=== PATIENT | female | born 1980 | race Caucasian/White ===

== ENCOUNTER → 2021-07-19 16:16 | Outpatient (BNVA) | payer MEDICAID, SELFPAY | PROVIDERS: Family Provider Family Medicine; PCP Family Medicine; Visit Provider Family Medicine | DX: D72.829 Elevated white blood cell count, unspecified (principal); R06.00 Dyspnea, unspecified; Z76.89 Persons encountering health services in other specified circumstances; F17.219 Nicotine dependence, cigarettes, with unspecified nicotine-induced disorders | CPT/HCPCS: 80053; 85025 ==

== ENCOUNTER → 2021-11-27 11:48 | Outpatient (BNVA) | payer MEDICAID, SELFPAY | PROVIDERS: Family Provider Family Medicine; PCP Family Medicine; Visit Provider Nurse Practitioner Family | DX: Z20.822 Contact with and (suspected) exposure to COVID-19 (principal) | CPT/HCPCS: 87635 ==

== ENCOUNTER → 2022-01-13 14:09 | Outpatient (BNVA) | payer MEDICAID, SELFPAY | PROVIDERS: Family Provider Family Medicine; PCP Family Medicine | DX: J11.1 Influenza due to unidentified influenza virus with other respiratory manifestations (principal) | CPT/HCPCS: 87400 ==

== ENCOUNTER → 2022-01-18 10:10 | Outpatient (BNVA) | payer MEDICAID, SELFPAY | PROVIDERS: Family Provider Family Medicine; PCP Family Medicine; Visit Provider Family Medicine | DX: R19.7 Diarrhea, unspecified (principal) | CPT/HCPCS: 87400 ==

== ENCOUNTER 2022-02-13 19:32 | Emergency (ER) | payer MEDICAID, SELFPAY ==
[2022-02-13] VITALS (9 sets, daily range): BP systolic 129–151; BP diastolic 82–97; PULSE 71–82; RESP 16–25; O2SAT 95–100; BMI 35.7
--- NOTE | 2022-02-13 19:49 | W.ED.CHESTPA ---
HPI - Chest Pain General: Chief Complaint: Chest Pain Stated Complaint: Chest Pains and Rt Arm Time Seen by Provider: 02/13/22 19:47 History of Present Illness: Ms. Potter is a 41-year-old lady with history of tobaccoism who presents to the emergency department due to chest and arm pain. Symptom onset was approximately 2 PM and she was working at that time but does not recall specific inciting event. Since that time she has had moderate intensity pressure in her chest which is occasionally sharp and severe in intensity. There is radiation down the left arm. She notes mild nausea, shortness of breath, and generalized malaise. Prior to these symptoms onset she was feeling well. Denies frequent history of similar. No history of hypertension, hyperlipidemia, diabetes. She does have positive family history for coronary artery disease though is unsure of exact age of onset. No history of blood clots or family history of clotting disorders, no prolonged immobilization or recent surgeries. No other specific changes in health, exacerbating, or alleviating factors identified. Onset (ago): hour(s) Prior episodes: No Onset: during exertion Pain location: substernal Pain radiation: right arm Severity: moderate Quality: aching, heaviness and sharp Review of Systems General: Reports: 10 or more systems reviewed and unremarkable except in HPI and below PFSH ED PFSH: Surgical History History of cholecystectomy History of hysterectomy History of tonsillectomy Social History Smoking and tobacco status: never smoked Second hand smoke exposure: Yes Alcohol intake: current Alcohol intake frequency: few times a month Desire information about alcohol rehabilitation?: No Physical Exam Const: COMMON NORMALS: alert GENERAL APPEARANCE: cooperative and well developed HENMT: COMMON NORMALS: normocephalic and atraumatic HEAD & SCALP: normocephalic and atraumatic Eye: COMMON NORMALS: conjunctivae normal CONJUNCTIVA: Yes conjunctivae normal SCLERA: sclerae normal Neck/C-Spine: COMMON NORMALS: supple GENERAL: Yes trachea midline Resp: COMMON NORMALS: clear to auscultation bilaterally EFFORT & INSPECTION: Yes able to speak in complete sentences AUSCULTATION: clear to auscultation bilaterally Cardio: COMMON NORMALS: regular rate and regular rhythm RATE: regular rate RHYTHM: regular rhythm GI: COMMON NORMALS: Soft to palpation PALPATION: Yes Soft to palpation and No Tenderness to palpation present (GI) PERCUSSION: normal to percussion Extremity: GENERAL: Yes normal exam except as noted and No edema Neuro: COMMON NORMALS: moves all extremities SENSORIUM/ORIENTATION: Yes alert and No Orientation impaired Psych: COMMON NORMALS: mental status grossly normal and Normal thought process present THOUGHT PROCESS: Normal thought process present Course ED course: - Patient was seen and evaluated by me at bedside - Patient placed on cardiac monitors, IV access obtained - Initial evaluation notable for exam as above. - Labs and xrays personally interpreted by me. EKG notable for sinus rhythm with out acute abnormality, no STEMI. -Aspirin, analgesia, antiemetic ordered. - Labs notable for no leukocytosis, normal hemoglobin. Metabolic panel with mild hypokalemia, oral replenishment ordered. Troponin negative with greater than 6 hours of symptoms. - Imaging notable for no lobar consolidation or pneumothorax on chest x-ray. - Upon serial reexamination after treatment the patient was somewhat improved - Based on patient history, evaluation, and testing as interpreted the most likely cause of the patient's condition is chest pain of uncertain etiology. Given history of underlying lung disease and exacerbation cannot be ruled out is triggering of symptoms. Patient is overall low risk by heart score and does not require further inpatient cardiac evaluation. She will be treated with COPD exacerbation and for now for outpatient follow-up. - The results of ED evaluation were discussed with the patient including prescriptions and/or symptomatic cares (if applicable) including appropriate and responsible use, followup plan, and return precautions. The patient verbalized understanding and felt safe for discharge. - Patient discharged in satisfactory condition. Note: Click bubbles or prepopulated sewell in note writing are used for assistance with data collection and billing and are inherently more limited than narrative and other text portions of this note. Please use narrative for additional clinical history and defer to narrative/free test for any case of contradictory information. If information appears in only free text or click bubble it should be considered present or absent as reported. Please contact note sba underwriter for clarifications of clinical information or contradictory information. MDM is a brief summary, contradictory or erroneous seeming information should be clarified and full note should be reviewed. Vital Signs: Vital signs: Vital Signs Pulse Rate 72 02/13/22 21:50 Respiratory Rate 20 H 02/13/22 21:50 Blood Pressure 134/90 02/13/22 21:50 Pulse Oximetry 98 02/13/22 21:50 MDM - Chest Pain Medical Decision Making 41-year-old lady presenting with chest pain. Low risk by heart score. Does have underlying COPD and will be treated for COPD exacerbation. Satisfactory for outpatient follow-up. Medical Records I reviewed the patient's medical records. Lab Data I reviewed the patient's lab results. : 02/13/22 20:10 02/13/22 20:10 Radiology Impressions Chest X-Ray 02/13/22 19:58 IMPRESSION: No acute findings. Laboratory Results WBC 8.6 10^3/uL (4.0-10.0) 02/13/22 20:10 RBC 4.73 10^6/uL (4.1-5.3) 02/13/22 20:10 Hgb 14.1 g/dL (11.5-15.3) 02/13/22 20:10 Hct 41.9 % (37.0-47.0) 02/13/22 20:10 MCV 88.6 fl (81-99) 02/13/22 20:10 MCH 29.8 pg (28.0-34.0) 02/13/22 20:10 MCHC 33.7 g/dL (30.0-36.0) 02/13/22 20:10 RDW 12.6 % (12.1-15.1) 02/13/22 20:10 Plt Count 233 10^3/cmm (130-400) 02/13/22 20:10 MPV 11.3 fL (7.4-10.4) H 02/13/22 20:10 Neut % (Auto) 69.5 % 02/13/22 20:10 Lymph % (Auto) 23.4 % 02/13/22 20:10 [place] % (Auto) 4.1 % 02/13/22 20:10 Eos % (Auto) 2.3 % 02/13/22 20:10 Baso % (Auto) 0.5 % 02/13/22 20:10 Neut # (Auto) 5.99 10^3/uL (1.8-7.7) 02/13/22 20:10 Lymph # (Auto) 2.0 10^3/uL (0.8-4.8) 02/13/22 20:10 [place] # (Auto) 0.4 10^3/uL (0.2-0.9) 02/13/22 20:10 Eos # (Auto) 0.2 10^3/uL (0.0-0.8) 02/13/22 20:10 Baso # (Auto) 0.0 10^3/uL (0.0-0.1) 02/13/22 20:10 Nucleated RBC % (auto) 0 % 02/13/22 20:10 Nucleated RBCs # 0.0 /100WBC 02/13/22 20:10 Sodium 139 mmol/L (136-145) 02/13/22 20:10 Potassium 3.3 mmol/L (3.5-5.1) L 02/13/22 20:10 Chloride 105 mmol/L (98-107) 02/13/22 20:10 Carbon Dioxide 24 mmol/L (22-29) 02/13/22 20:10 Anion Gap 13.3 (5-19) 02/13/22 20:10 BUN 14 mg/dL (6-20) 02/13/22 20:10 Creatinine 0.7 mg/dL (0.5-0.9) 02/13/22 20:10 GFR Calculation 91.8 mL/min (90-130) 02/13/22 20:10 Glucose 109 mg/dL (65-115) 02/13/22 20:10 Calculated Osmolality 289 mOsm/kg (285-295) 02/13/22 20:10 Calcium 9.5 mg/dL (8.5-10.5) 02/13/22 20:10 Total Bilirubin 0.4 mg/dL (0.15-1.2) 02/13/22 20:10 AST 21 U/L (0-32) 02/13/22 20:10 ALT 21 U/L (0-33) 02/13/22 20:10 Alkaline Phosphatase 68 IU/L (35-105) 02/13/22 20:10 Troponin T Baseline 6 ng/L (0-10) 02/13/22 20:10 NT-Pro-B Natriuret Pep 52 pg/mL (0-125) 02/13/22 20:10 Total Protein 7.0 g/dL (6.6-8.7) 02/13/22 20:10 Albumin 4.7 g/dL (3.5-5.2) 02/13/22 20:10 Globulin 2.3 g/dL (1.3-4.6) 02/13/22 20:10 Lipase 47 U/L (13-60) 02/13/22 20:10 Discharge Plan Discharge Patient Disposition: Home Clinical Impression: Chest pain Condition: Stable Prescriptions: New albuterol sulfate 90 mcg/actuation HFA aerosol inhaler 2 inh inhalation Q4H PRN (Reason: shortness of breath or wheezing) Qty: 8.5 0RF Rx Instructions: 2 puffs every 4 hr for 1 day then every 6 hr for 1 day then every 8 hr doxycycline hyclate 100 mg tablet 100 mg PO BID 10 Days Qty: 20 0RF No Action Tylenol PM Extra Strength 25-500 mg Tablet 2 tab PO BEDTIME PRN (Reason: Sleep) 0RF Rx Instructions: administer while awake melatonin 10 mg Tablet 20 mg PO BEDTIME 0RF Discharge Orders: Discharge ED (Routine); Ordered 02/13/22 Ordered By: Ruel Alvarez Discharge Diet: Usual diet Discharge Activity: Increase activity as tolerated Patient Instructions: Chest Pain (ED), COPD (Chronic Obstructive Pulmonary Disease) (ED), Opioid Safety Activity Restrictions/Additional Instructions: Thank you for visiting the emergency department. You were seen and evaluated for chest pain. The exact cause of your symptoms is unclear. You are overall low risk for cardiac cause however I will message case management for follow-up with cardiology for additional cardiac testing if they feel appropriate. Additionally I will treat you for a flareup of underlying lung disease likely secondary to smoking. Please follow-up with your primary care provider. Return to the emergency department for worsening symptoms or anything else that you are concerned about and feel needs emergency department evaluation. Coding Level of Care Code ED Electrician Supervisor for Leonardo Fwmaru Exam Comprehensive
--- NOTE | 2022-02-13 19:58 | XRR_ITS ---
PROCEDURE INFORMATION: Exam: XR Chest Exam date and time: 02/13/2022 8:31 PM Age: 41 years old Clinical indication: Chest wall pain; Additional info: Chest pain TECHNIQUE: Imaging protocol: XR of the chest. Views: 1 view. COMPARISON: CT chest w con* [id number] 06/24/2018 7:32 PM FINDINGS: Lungs: Unremarkable. No consolidation. Pleural spaces: Unremarkable. No pleural effusion. No pneumothorax. Heart/Mediastinum: Unremarkable. No cardiomegaly. Bones/joints: Unremarkable. XR/XR chest 1V portable [id number] IMPRESSION: No acute findings.
--- NOTE | 2022-02-13 19:58 | ECG_ITS ---
[facility] Test Date: 2022-02-13 Pat Name: Cyndi Potter Department: Room: Gender: Female Cadastral Surveyor: : 1980 Requested By: Ruel Alvarez Order Number: [id number] Natarajan MD: Mickey Famrer M.D. Measurements Intervals [place] Rate: 74 P: 57 [place]: 168 QRS: 48 QRSD: 79 T: 65 QT: 366 QTc: 406 Interpretive Statements SINUS RHYTHM No previous ECG available for comparison Electronically Signed On 02-13-2022 21:56:24 CDT by Mickey Farmer M.D. [id number]
[2022-02-13] MEDS: ondansetron 2 mg/ML SDV 2 mL 4 MG IVP (20:17)
[2022-02-13] MEDS: morphine 4 mg/mL SDV 1 mL IVP (20:17)
[2022-02-13] MEDS: aspirin 81 mg Chew Tablet 324 MG PO (20:18)
[2022-02-13 20:19] LABS: Basophils % 0.5 %; Eosinophils # 0.2 10^3/uL (0.0-0.8); Eosinophils % 2.3 %; Hematocrit 41.9 % (37.0-47.0); Hemoglobin 14.1 g/dL (11.5-15.3); Lymphocytes % 23.4 %; Mean Corpuscular HGB Conc 33.7 g/dL (30.0-36.0); Mean Corpuscular Hemoglobin 29.8 pg (28.0-34.0); Mean Corpuscular Volume 88.6 fl (81-99); Mean Platelet Volume 11.3 fL (7.4-10.4); Monocytes # 0.4 10^3/uL (0.2-0.9); Monocytes % 4.1 %; Neutrophils # 5.99 10^3/uL (1.8-7.7); Neutrophils % 69.5 %; Nucleated Red Blood Cells % 0 %; Platelet Count 233 10^3/cmm (130-400); Red Blood Count 4.73 10^6/uL (4.1-5.3); Red Cell Distribution Width 12.6 % (12.1-15.1); White Blood Count 8.6 10^3/uL (4.0-10.0)
[2022-02-13 20:42] LABS: Troponin(5th) Baseline 6 ng/L (0-10)
[2022-02-13 20:52] LABS: Alanine Aminotransferase 21 U/L (0-33); Albumin Level 4.7 g/dL (3.5-5.2); Alkaline Phosphatase 68 IU/L (35-105); Anion Gap 13.3 (5-19); Aspartate Amino Transferase 21 U/L (0-32); Blood Urea Nitrogen 14 mg/dL (6-20); Calcium 9.5 mg/dL (8.5-10.5); Carbon Dioxide 24 mmol/L (22-29); Chloride 105 mmol/L (98-107); Creatinine Clr Calc Pharmacy 120.9979; Globulin 2.3 g/dL (1.3-4.6); Glomerular Filtration Rate 91.8 mL/min (90-130); Glucose 109 mg/dL (65-115); Lipase 47 U/L (13-60); NT Pro B Type Natriuretic Pept 52 pg/mL (0-125); Osmolality Calculated 289 mOsm/kg (285-295); Potassium 3.3 mmol/L (3.5-5.1); Sodium 139 mmol/L (136-145); Total Bilirubin 0.4 mg/dL (0.15-1.2)
[2022-02-13] MEDS: potassium chloride oral liq 20 mEq/15 mL UDC 40 MEQ PO (21:06)
[2022-02-13] MEDS: predniSONE 20 mg Tablet 40 MG PO (21:44)
[2022-02-13] MEDS: doxycycline 100 mg Tablet PO (21:44)
--- NOTE | 2022-02-13 21:58 | ECG_ITS ---
[facility] Test Date: 2022-02-13 Pat Name: Cyndi Potter Department: Room: Gender: Female Finishing Pan Operator: : 1980 Requested By: Ruel Alvarez Order Number: [id number] Natarajan MD: Mickey Farmer M.D. Measurements Intervals [place] Rate: 66 P: 54 [place]: 170 QRS: 47 QRSD: 83 T: 64 QT: 385 QTc: 405 Interpretive Statements SINUS RHYTHM WITH SINUS ARRHYTHMIA Compared to ECG 02/13/2022 19:45:13 No significant changes Electronically Signed On 02-13-2022 22:00:40 CDT by Mickey Farmer M.D. [id number]
--- NOTE | 2022-02-14 13:34 | DCPLANNER ---
Addendum entered by Yanet Colón 05/03/22 11:01: Patient had a follow up appointment scheduled with [facility] - patient did attend appointment. Addendum entered by Yanet Colón 02/23/22 10:21: Patient has a follow up appointment scheduled for Saturday April 16, 2022 at 1:[address] Jaramillo. Clinic will call patient with appointment information. Original Note: credit administration manager had message to schedule a follow up appointment for patient with [facility]. credit administration manager sent patients information to the front office staff at [facility]. Patients information will be printed and reviewed. Clinic will call patient with appointment information.
== END 2022-02-13 21:51 | disposition home or self-care (01) ==
PROVIDERS: Emergency Provider Emergency Medicine
DX: R07.9 Chest pain, unspecified (principal)
CPT/HCPCS: 71045; 80053; 83690; 83880; 84484; 85025; 93005; 96374; 96375; 99285; J2270; J2405; J7512

== ENCOUNTER → 2022-03-19 09:58 | Outpatient (BNVA) | payer MEDICAID, SELFPAY | PROVIDERS: PCP Family Medicine; Visit Provider Internal Medicine Cardiovascular Disease | DX: R07.9 Chest pain, unspecified (principal); F17.210 Nicotine dependence, cigarettes, uncomplicated; I49.9 Cardiac arrhythmia, unspecified; R06.02 Shortness of breath | CPT/HCPCS: 99203 ==

== ENCOUNTER 2022-06-18 10:13 | Outpatient (CLI) | payer MEDICAID, SELFPAY ==
[2022-06-18 10:47] LABS: Basophils % 0.9 %; Eosinophils # 0.1 10^3/uL (0.0-0.8); Eosinophils % 1.1 %; Hematocrit 48.7 % (37.0-47.0); Hemoglobin 14.4 g/dL (11.5-15.3); Lymphocytes # 0.7 10^3/uL (0.8-4.8); Lymphocytes % 16.1 %; Mean Corpuscular HGB Conc 29.6 g/dL (30.0-36.0); Mean Corpuscular Hemoglobin 31.3 pg (28.0-34.0); Mean Corpuscular Volume 105.9 fl (81-99); Mean Platelet Volume 11.7 fL (7.4-10.4); Monocytes # 0.5 10^3/uL (0.2-0.9); Monocytes % 10.6 %; Neutrophils # 3.21 10^3/uL (1.8-7.7); Neutrophils % 70.9 %; Nucleated Red Blood Cells % 0 %; Platelet Count 158 10^3/cmm (130-400); White Blood Count 4.5 10^3/uL (4.0-10.0)
[2022-06-18 11:37] LABS: Alanine Aminotransferase 23 U/L (0-33); Albumin Level 4.4 g/dL (3.5-5.2); Alkaline Phosphatase 61 U/L (35-105); Anion Gap 13.6 (5-19); Aspartate Amino Transferase 19 U/L (0-32); Blood Urea Nitrogen 10 mg/dL (6-20); Calcium 9.1 mg/dL (8.5-10.5); Carbon Dioxide 25 mmol/L (22-29); Chloride 102 mmol/L (98-107); Globulin 2.4 g/dL (1.3-4.6); Glomerular Filtration Rate 78.7 mL/min (90-130); Glucose 83 mg/dL (65-115); Magnesium 1.9 mg/dL (1.7-2.3); Osmolality Calculated 282 mOsm/kg (285-295); Potassium 3.6 mmol/L (3.5-5.1); Sodium 137 mmol/L (136-145); Thyroid Stimulating Hormone 1.28 uIU/mL (0.27-4.20); Total Bilirubin 0.4 mg/dL (0.15-1.2); Total Protein 6.8 g/dL (6.6-8.7)
[2022-06-18 12:05] LABS: HIV 1 & 2 Antibody Non-Reactive (Non-Reactiv); HIV 1 & 2 Antigen Non-Reactive (Non-Reactiv)
[2022-06-18 12:45] LABS: Hepatitis C Virus Antibody Non-Reactive (Nonreactive)
[2022-06-18 12:49] LABS: Hepatitis B Surface AB < 3.5 (11.5-1000)
== END 2022-06-18 10:14 | disposition home or self-care (01) ==
LOC: LAB 10:15
PROVIDERS: PCP Family Medicine; Visit Provider Family Medicine
DX: Z12.31 Encounter for screening mammogram for malignant neoplasm of breast (principal); E87.6 Hypokalemia; N64.4 Mastodynia; Z11.4 Encounter for screening for human immunodeficiency virus [HIV]; Z11.59 Encounter for screening for other viral diseases; Z91.89 Other specified personal risk factors, not elsewhere classified
CPT/HCPCS: 36415; 80053; 83735; 84443; 85025; 86706; 86803; 87806

== ENCOUNTER → 2023-04-15 10:34 | Outpatient (BNVA) | payer MEDICAID, SELFPAY | PROVIDERS: PCP Family Medicine; Visit Provider Family Medicine | DX: D75.89 Other specified diseases of blood and blood-forming organs (principal); F17.219 Nicotine dependence, cigarettes, with unspecified nicotine-induced disorders; R53.83 Other fatigue; R63.5 Abnormal weight gain | CPT/HCPCS: 85025 ==

== ENCOUNTER → 2023-07-18 15:46 | Outpatient (BNVA) | payer MEDICAID, SELFPAY | PROVIDERS: PCP Family Medicine; Visit Provider Emergency Medicine | DX: R39.9 Unspecified symptoms and signs involving the genitourinary system (principal) | CPT/HCPCS: 81000 ==

== ENCOUNTER 2023-09-19 06:46 | Emergency (ER) | payer MEDICAID, SELFPAY ==
[2023-09-19 07:02] VITALS: BMI 36.2
[2023-09-19 07:04] VITALS: BP 137/90; PULSE 84; RESP 15; TEMP 37.1; O2SAT 97
[2023-09-19] MEDS: ondansetron 2 mg/ML SDV 2 mL 4 MG IVP (07:13)
--- NOTE | 2023-09-19 07:13 | W.ED.ABDPA2 ---
HPI - Abdominal Pain General: Chief Complaint: Abdominal Pain Stated Complaint: lower right abd pain,N/V Time Seen by Provider: 09/19/23 06:53 Source: patient Mode of arrival: ambulatory History of Present Illness: 43-year-old female presents emergency room with complaint of abdominal discomfort. She localizes the pain to the right lower quadrant that woke her up from sleep this morning is progressively worsened she is very nauseous feels like she needs to vomit but has not. She also feels like she is has a bowel movement has not been able to she noticed that when she went down the stairs it was much more intense she came down it is also worsens with any movement. She denies any fever sweats chills no dysuria urgency or frequency no hematuria no hematemesis or coffee-ground emesis she previously has had cholecystectomy and hysterectomy. MD elicited complaint: abdominal pain Onset (ago): hour(s) Pain Consistency: constant Location: RLQ Severity: severe Quality: sharp Exacerbating factors: movement Relieving factors: nothing Associated Symptoms: Reports nausea and vomiting; Denies anorexia, belching, bloating, change in bowel habits, change in stool character, chills, coffee ground emesis, constipation, GI cramping, diarrhea, dyspepsia, dysuria, excessive flatus, fever(s), heartburn, hematochezia, hematuria, hematemesis, fecal incontinence, loose stools, melena, poor appetite and syncope Review of Systems Const: Denies: fever(s) or chills Card: Denies: syncope Resp: Denies: dyspnea GI: Reports: nausea and vomiting; Denies: hematemesis, coffee ground emesis, heartburn, diarrhea, constipation, bloating, GI cramping, belching, excessive flatus, fecal incontinence, change in bowel habits, change in stool character, hematochezia or melena : Denies: dysuria or hematuria Musc: Denies: neck pain or back pain Skin/Breast: Denies: rash PFSH ED PFSH: Medical History Viral illness Surgical History History of hysterectomy History of tonsillectomy History of cholecystectomy Social History (Reviewed 12/21/23 @ 07:16 by SHAHAB Wen Smoking and tobacco/nicotine status: current every day tobacco/nicotine user cigarettes Second hand smoke exposure: Yes Alcohol intake: current Alcohol intake frequency: few times a month Substance/Drug Use: never Female Reproductive History: Spontaneous abortions: No Physical Exam Const: GENERAL APPEARANCE: cooperative and comfortable ORIENTATION/CONSCIOUSNESS: Yes awake, Yes oriented to person, Yes oriented to place and Yes oriented to time HENMT: COMMON NORMALS: normocephalic, atraumatic and hearing grossly normal bilaterally HEAD & SCALP: normocephalic and atraumatic Resp: COMMON NORMALS: normal respiratory effort, No retractions, No use of accessory muscles and clear to auscultation bilaterally AUSCULTATION: clear to auscultation bilaterally Cardio: COMMON NORMALS: regular rate, regular rhythm and No murmurs present (Cardio) RATE: regular rate RHYTHM: regular rhythm GI: COMMON NORMALS: No hepatosplenomegaly present AUSCULTATION: Yes Hypoactive bowel sounds present PALPATION: Yes Tenderness to palpation present (GI), Yes Guarding due to palpation present (GI) in the RLQ and Yes No hepatosplenomegaly present Extremity: COMMON NORMALS: normal to inspection, capillary refill normal, no clubbing, cyanosis or edema, no calf tenderness and no pedal edema Neuro: SENSORIUM/ORIENTATION: Yes oriented to person, Yes oriented to place and Yes oriented to time Skin: COMMON NORMALS: no rashes or lesions noted GENERAL SKIN EXAM: no rashes or lesions noted Course Vital Signs: Vital signs: Vital Signs Temperature 98.8 F 09/19/23 07:04 Pulse Rate 74 09/19/23 09:32 Respiratory Rate 18 09/19/23 09:01 Blood Pressure 131/87 09/19/23 09:32 Pulse Oximetry 97 09/19/23 09:32 Oxygen Delivery Me thod Room Air 09/19/23 09:01 MDM - Abdominal Pain Medical Decision Making No acute appendicitis on CT no leukocytosis UA negative. Suspect discomfort is from the ovarian cyst. Discharge home with diclofenac follow-up with REFORESTATION WORKER or primary care to reevaluate in the next few weeks. Medical Records I reviewed the patient's medical records. Lab Data I reviewed the patient's lab results. 09/19/23 07:15 09/19/23 07:15 Labs/Radiology: Laboratory Results WBC 6.16 10^3/uL (3.29-11.43) 09/19/23 07:15 RBC 5.13 10^6/uL (3.85-5.65) 09/19/23 07:15 Hgb 15.20 g/dL (11.27-16.99) 09/19/23 07:15 Hct 44.6 % (36-47) 09/19/23 07:15 MCV 86.9 fl (85-98) 09/19/23 07:15 MCH 29.6 pg (27-33) 09/19/23 07:15 MCHC 34.1 g/dL (30-55) 09/19/23 07:15 RDW 12.6 % (12.1-15.1) 09/19/23 07:15 Plt Count 228 10^3/cmm (157-399) 09/19/23 07:15 MPV 10.5 fL (7.4-10.4) H 09/19/23 07:15 Neut % (Auto) 66.5 % 09/19/23 07:15 Lymph % (Auto) 25.2 % 09/19/23 07:15 [place] % (Auto) 4.5 % 09/19/23 07:15 Eos % (Auto) 2.9 % 09/19/23 07:15 Baso % (Auto) 0.6 % 09/19/23 07:15 Neut # (Auto) 4.09 10^3/uL (1.8-7.7) 09/19/23 07:15 Lymph # (Auto) 1.6 10^3/uL (0.8-4.8) 09/19/23 07:15 [place] # (Auto) 0.3 10^3/uL (0.2-0.9) 09/19/23 07:15 Eos # (Auto) 0.2 10^3/uL (0.0-0.8) 09/19/23 07:15 Baso # (Auto) 0.0 10^3/uL (0.0-0.1) 09/19/23 07:15 Nucleated RBC % (auto) 0 % 09/19/23 07:15 Nucleated RBCs # 0.0 /100WBC 09/19/23 07:15 Sodium 136 mmol/L (136-145) 09/19/23 07:15 Potassium 4.0 mmol/L (3.5-5.1) 09/19/23 07:15 Chloride 102 mmol/L (98-107) 09/19/23 07:15 Carbon Dioxide 23 mmol/L (22-29) 09/19/23 07:15 Anion Gap 15.0 (5-19) 09/19/23 07:15 BUN 14 mg/dL (6-20) 09/19/23 07:15 Creatinine 0.7 mg/dL (0.5-0.9) 09/19/23 07:15 GFR Calculation 90.9 mL/min (90-130) 09/19/23 07:15 Glucose 161 mg/dL (65-115) H 09/19/23 07:15 Calculated Osmolality 286 mOsm/kg (285-295) 09/19/23 07:15 Calcium 9.4 mg/dL (8.5-10.5) 09/19/23 07:15 Total Bilirubin 0.5 mg/dL (0.15-1.2) 09/19/23 07:15 AST 22 U/L (0-32) 09/19/23 07:15 ALT 32 U/L (0-33) 09/19/23 07:15 Alkaline Phosphatase 68 U/L (35-105) 09/19/23 07:15 Total Protein 6.9 g/dL (6.6-8.7) 09/19/23 07:15 Albumin 4.6 g/dL (3.5-5.2) 09/19/23 07:15 Globulin 2.3 g/dL (1.3-4.6) 09/19/23 07:15 Urine Color Yellow (Yellow) 09/19/23 08:32 Urine Appearance Clear (CLEAR) 09/19/23 08:32 Urine pH 6 (5-7) 09/19/23 08:32 Ur Specific [place] 1.010 (1.005-1.030) 09/19/23 08:32 Urine Protein Neg (Negative) 09/19/23 08:32 Urine Glucose (UA) Norm (Normal) 09/19/23 08:32 Urine Ketones Negative (Negative) 09/19/23 08:32 Urine Blood Neg (Negative) 09/19/23 08:32 Urine Nitrate Negative (Negative) 09/19/23 08:32 Urine Bilirubin Neg (Negative) 09/19/23 08:32 Urine Urobilinogen Norm mg/dL (Negative) 09/19/23 08:32 Ur Leukocyte Esterase Negative (Negative) 09/19/23 08:32 All radiology interpretation(s) finalized by discharge Discharge Plan Discharge Patient Disposition: Home Clinical Impression: Cyst of right ovary Condition: Stable Prescriptions: New diclofenac sodium 75 mg tablet,delayed release (DR/EC) 75 mg PO Q12H PRN (Reason: pain) Qty: 20 0RF Discontinued ibuprofen 200 mg Tablet 800 mg PO Q6H PRN (Reason: Pain) Discharge Orders: Discharge ED (Routine); Ordered 09/19/23 Ordered By: Saul Hoskins Referrals: Joe Oswald DO [Primary Care Provider] - Discharge Diet: Usual diet Discharge Activity: Increase activity as tolerated Patient Instructions: Ovarian Cyst (ED), Opioid Safety, Pain Management Activity Restrictions/Additional Instructions: Thank you for choosing [facility] for your healthcare needs today. Please realize this is an emergency room and that we are providing you with a medical screening exam and this may not be complete and all inclusive of all the testing and or work up that you may need to determine your ailment or severity of your illness. It is very important that you follow up as instructed or that you return to the Emergency Department should you have concerns or if your condition changes or worsens in any way. Follow-up with your doctor for reevaluation of the ovarian cyst in the next 1 to 2 weeks. Use the diclofenac instead of ibuprofen for discomfort. Coding Level of Care Code ED Roller Cleaner for Leonardo Alfaro
[2023-09-19] MEDS: sodium chloride 0.9% 1,000 ML 999 ML IV (07:14)
--- NOTE | 2023-09-19 07:16 | CT_ITS ---
WS: [id number] CT ABDOMEN PELVIS TECHNIQUE: Contrast-enhanced CT of the abdomen and pelvis with coronal and sagittal reformatted image s. CLINICAL INFORMATION: Abdominal pain COMPARISON: CT 2018 DLP: 928.[address] scans at [facility] use at least one of these dose optimization techniques: automated e xposure control; mA and/or kV adjustment per patient size (includes targeted exams where dose is matc hed to clinical indication); or iterative reconstruction. FINDINGS: Diffuse fatty infiltration of the liver. Prior cholecystectomy. Enlargement the RIGHT hepat ic lobe. Normal spleen. Lung bases are well aerated. Normal pancreatic parenchymal enhancement. Maria L l portal vein and splenic vein. Tiny esophageal hiatal hernia. Adrenal glands are normal. Normal paris l parenchymal enhancement. Small bilateral renal cysts. No hydronephrosis. Normal portal vein and spl enic vein. Normal caliber abdominal aorta. Normal sigmoid colon. Normal appendix. Lobulated RIGHT ovarian cyst measuring 3.9 x 3.2 cm. IMPRESSION: 1. Normal appendix in the RIGHT lower quadrant. 2. Lobulated RIGHT ovarian cyst measuring 3.9 x 3.2 cm. 3. Prior cholecystectomy. 4. Tiny esophageal hiatal hernia. 5. Hepatomegaly with mild diffuse fatty infiltration of the liver.
[2023-09-19 07:22] LABS: Basophils % 0.6 %; Eosinophils # 0.2 10^3/uL (0.0-0.8); Eosinophils % 2.9 %; Hematocrit 44.6 % (36-47); Lymphocytes # 1.6 10^3/uL (0.8-4.8); Lymphocytes % 25.2 %; Mean Corpuscular HGB Conc 34.1 g/dL (30-55); Mean Corpuscular Hemoglobin 29.6 pg (27-33); Mean Corpuscular Volume 86.9 fl (85-98); Mean Platelet Volume 10.5 fL (7.4-10.4); Monocytes # 0.3 10^3/uL (0.2-0.9); Monocytes % 4.5 %; Neutrophils # 4.09 10^3/uL (1.8-7.7); Neutrophils % 66.5 %; Nucleated Red Blood Cells % 0 %; Platelet Count 228 10^3/cmm (157-399); Red Blood Count 5.13 10^6/uL (3.85-5.65); Red Cell Distribution Width 12.6 % (12.1-15.1); White Blood Count 6.16 10^3/uL (3.29-11.43)
[2023-09-19 07:34] VITALS: BP 124/82; O2SAT 98
[2023-09-19 07:39] LABS: Alanine Aminotransferase 32 U/L (0-33); Albumin Level 4.6 g/dL (3.5-5.2); Alkaline Phosphatase 68 U/L (35-105); Aspartate Amino Transferase 22 U/L (0-32); Blood Urea Nitrogen 14 mg/dL (6-20); Calcium 9.4 mg/dL (8.5-10.5); Carbon Dioxide 23 mmol/L (22-29); Chloride 102 mmol/L (98-107); Globulin 2.3 g/dL (1.3-4.6); Glomerular Filtration Rate 90.9 mL/min (90-130); Glucose 161 mg/dL (65-115); Osmolality Calculated 286 mOsm/kg (285-295); Sodium 136 mmol/L (136-145); Total Bilirubin 0.5 mg/dL (0.15-1.2); Total Protein 6.9 g/dL (6.6-8.7)
[2023-09-19] MEDS: iohexol 350 mg/mL 500 mL Btl (per mL) IV (07:40)
[2023-09-19 08:31] VITALS: BP 134/88; PULSE 67; RESP 16; O2SAT 98
[2023-09-19 08:38] LABS: Add Urine Microscopic? NO; Charge for UA Resulting for Rev
[2023-09-19 08:44] LABS: Bilirubin Urine Neg (Negative); Blood Urine Neg (Negative); Glucose Urine UA Norm (Normal); Ketones Urine Negative (Negative); Leukocyte Esterase Urine Negative (Negative); Nitrate Urine Negative (Negative); Protein Urine Neg (Negative); Urine Appearance Clear (CLEAR); Urine Color Yellow (Yellow); Urobilinogen Urine Norm (Negative); pH Urine 6 (5-7)
[2023-09-19 09:01] VITALS: BP 116/89; PULSE 75; RESP 18; O2SAT 98
[2023-09-19] MEDS: ketorolac 30 mg/mL INJ IVP (09:02)
[2023-09-19 09:32] VITALS: BP 131/87; PULSE 74; O2SAT 97
== END 2023-09-19 09:36 | disposition home or self-care (01) ==
PROVIDERS: Emergency Provider Family Medicine; PCP Family Medicine
DX: N83.201 Unspecified ovarian cyst, right side (principal); F17.210 Nicotine dependence, cigarettes, uncomplicated
CPT/HCPCS: 74177; 80053; 81003; 85025; 96361; 96374; 96375; 99285; J1885; J2405; J7030; Q9967

== ENCOUNTER 2024-04-09 13:14 | Emergency (ER) | payer MEDICAID, SELFPAY ==
--- NOTE | 2024-04-09 13:14 | ECG_ITS ---
[facility] Test Date: 2024-04-09 Pat Name: Cyndi Potter Department: Room: Gender: Female Child Protective Services Social Worker: : 1980 Requested By: Daniel Baum Order Number: [id number] Natarajan MD: Mimi Schreiber M.D. Measurements Intervals [place] Rate: 86 P: 61 [place]: 163 QRS: 36 QRSD: 73 T: 66 QT: 341 QTc: 410 Interpretive Statements SINUS RHYTHM POSSIBLE LEFT ATRIAL ENLARGEMENT [-0.1mV P-WAVE IN V1/V2] Compared to ECG 02/13/2022 21:41:37 Sinus arrhythmia no longer present Electronically Signed On 04-09-2024 23:24:01 CDT by Mimi Schreiber M.D. [id number]
[2024-04-09 13:21] VITALS: BP 122/75; PULSE 88; RESP 18; TEMP 36.6; O2SAT 96
== END 2024-04-09 14:17 | disposition left against medical advice (07) ==
PROVIDERS: Emergency Provider Family Medicine; PCP Family Medicine
DX: R07.9 Chest pain, unspecified (principal); M25.511 Pain in right shoulder; M25.522 Pain in left elbow; R06.02 Shortness of breath; R42 Dizziness and giddiness; Z53.21 Procedure and treatment not carried out due to patient leaving prior to being seen by health care provider
CPT/HCPCS: 93005

== ENCOUNTER 2025-04-30 09:06 | Outpatient (CLI) | payer MEDICAID, SELFPAY ==
--- NOTE | 2025-04-30 | MM_ITS ---
WS: [id number] BILATERAL SCREENING DIGITAL TOMOSYNTHESIS MAMMOGRAM WITH CAD HISTORY: ANNUAL SCREENING COMPARISON: None available. Bilateral CC and MLO views with tomosynthesis and synthetic mammography submitted. Computer aided detection analyzed. Breast composition: There are scattered areas of fibroglandular density. No suspicious masses, microcalcifications or architectural distortion. MM/MM scr BI tomosynthesis [id number] IMPRESSION: BI-RADS: 1 - Negative. FOLLOW UP: 1 Year Follow-up
== END 2025-04-30 09:07 | disposition home or self-care (01) ==
LOC: RAD 09:06
PROVIDERS: PCP Family Medicine; Visit Provider Nurse Practitioner Family
DX: Z12.31 Encounter for screening mammogram for malignant neoplasm of breast (principal); R92.323 Mammographic fibroglandular density, bilateral breasts
CPT/HCPCS: 77063; 77067

== ENCOUNTER 2025-08-24 06:12 | Day surgery (SDC) | payer MEDICAID, SELFPAY ==
[2025-08-24 06:31] VITALS: BP 102/69; PULSE 89; RESP 18; TEMP 36.3; O2SAT 97; BMI 31.8
--- NOTE | 2025-08-24 06:52 | ANES.PREANE2 ---
Pre-Anesthetic Assessment Height/Weight: Height 1.65 m Weight 86.636 kg Temp Pulse Resp BP Pulse Ox O2 Del Method 97.3 F L 89 18 102/69 97 Room Air 08/24/25 06:31 08/24/25 06:31 08/24/25 06:31 08/24/25 06:31 08/24/25 06:31 08/24/25 06:31 Preop Diagnosis: screening Operation Date: 08/24/25 07:30 Proposed Procedures p Colonoscopy 55743 G0121 Z12.11(Not Applicable) - Braden Ramirez MD Was Beta Irlanda taken within 24 hours: N/A Was Clonidine taken within 24 hours: N/A Last intake: Intake Last Liquid Date 08/23/25 Last Liquid Time 20:00 Last Solid Date 08/22/25 Last Solid Time 17:00 Social Tobacco see chart Exam alert and oriented x 3 Airway Submandibular: within normal limits Cervical ROM: within normal limits Mallampati: Class II Dentition: chipped History/ROS No significant history except as noted Pulmonary None reported Anesthetic Plan ASA status: 2 Anesthesia: MAC Risk of > 500 ml blood loss (7ml/kg in children): No Medications/Allergies Home Medications ?Medication ?Instructions ?Recorded ?Confirmed ?Last Taken ?Type tirzepatide (weight loss) 2.5 2.5 mg SUBCUT .WEEKLY 05/07/25 08/24/25 08/13/25 History mg/0.5 mL subcutaneous pen injector (Zepbound) Allergies Allergy/AdvReac Type Severity Reaction Status Date / Time No Known Allergies Allergy Verified 08/24/25 06:29 Current Medications Generic Name Dose Route Start Last Admin Trade Name Freq PRN Reason Stop Dose Admin Sodium Chloride 1,000 mls @ 15 mls/hr 08/24/25 06:14 08/24/25 06:44 Sodium Chloride 0.9% IV 08/25/25 06:13 15 mls/hr .Q24H PRN Administration COLONOSCOPY FLUIDS PFSH Anesthesia Medical History Viral illness Surgical History History of hysterectomy History of tonsillectomy History of cholecystectomy Family History Denies family history of Colon cancer Ovarian cancer Prostate cancer Diabetes Heart disease Hypercholesteremia Breast cancer Hypertension Uterine cancer Thyroid disease Stroke Social History Smoking and tobacco/nicotine status: current every day tobacco/nicotine user cigarettes Packs smoked per day: 0.5 Years cigarettes smoked: 28 Alcohol intake: never Substance/Drug Use: never Female Reproductive History Spontaneous abortions: No
--- NOTE | 2025-08-24 07:03 | W.PM.OPSUD ---
Surgery/Procedure H&P Update DATE OF PROCEDURE: August 24, 2025 DATE H&P PERFORMED: 05/07/25 H&P UPDATE INFORMATION: I have reviewed H&P completed within last 30 days, I have examined patient prior to procedure, No changes to prior documentation and Risks and benefits of the procedure reviewed PREOP DIAGNOSIS: screening PLANNED PROCEDURE: Operation Date: 08/24/25 07:30 Proposed Procedures p Colonoscopy 63118 G0121 Z12.11(Not Applicable) - Braden Ramirez MD
[2025-08-24 07:48] VITALS: BP 99/61; PULSE 70; RESP 16; TEMP 36.2; O2SAT 97
[2025-08-24 07:59] VITALS: BP 106/40; PULSE 75; RESP 16; O2SAT 98
--- NOTE | 2025-08-24 08:15 | ANE.PACU2 ---
Inpatient post-anesthesia follow up: Airway intact: Yes Vital signs: Temperature 97.2 F Pulse Rate 75 Respiratory Rate 16 Blood Pressure 106/40 Pulse Oximetry 98 Oxygen Delivery Me thod Room Air Oxygen Flow Rate Fraction of Inspir ed Oxygen Hydration adequate: Yes Nausea and vomiting: No Pain level: 1 Mental status: Baseline
--- NOTE | 2025-08-24 09:53 | W.PM.OPSFHP ---
Same Day Surgery H&P Indication for Procedure/HPI DATE OF PROCEDURE: August 24, 2025 CHIEF COMPLAINT/INDICATIONFOR SURGICAL PROCEDURE: screening colonoscopy PREOP DIAGNOSIS: screening PLANNED PROCEDURE: Operation Date: 08/24/25 07:30 Proposed Procedures p Colonoscopy 02008 G0121 Z12.11(Not Applicable) - Braden Ramirez MD Medications/Allergies* Home Medications ?Medication ?Instructions ?Recorded ?Confirmed ?Type tirzepatide (weight loss) 2.5 2.5 mg SUBCUT .WEEKLY 05/07/25 08/24/25 History mg/0.5 mL subcutaneous pen injector (Zepbound) Allergies/Adverse Reactions Allergy/AdvReac Type Severity Reaction Status Date / Time No Known Allergies Allergy Verified 08/24/25 06:29 Pertinent History/Comorbid Conditions* Medical History (Updated 03/26/25 @ 14:28 by Omar Shore DPM) Viral illness Surgical History (Updated 02/13/22 @ 20:16 by Ruel Alvarez MD) History of hysterectomy History of tonsillectomy History of cholecystectomy Family History (Updated 10/31/23 @ 13:37 by Azul Barahona LPN) Denies family history of Colon cancer Ovarian cancer Prostate cancer Diabetes Heart disease Hypercholesteremia Breast cancer Hypertension Uterine cancer Thyroid disease Stroke Social History Smoking and tobacco/nicotine status: current every day tobacco/nicotine user cigarettes Packs smoked per day: 0.5 Years cigarettes smoked: 28 Alcohol intake: never Substance/Drug Use: never Pertinent Exam Findings alert, oriented x 3, clear to auscultation bilaterally, regular rate & rhythm and procedure specific exam findings abdomen soft, nt, nd Recommendations Risks and benefits of procedure reviewed and Patient/family agree to proceed Surgery/Procedure today Other Plans: Patient seen at 0703 Coding Level of Care Code Acute Code for Chg Fwd
== END 2025-08-24 08:18 | disposition home or self-care (01) ==
PROVIDERS: PCP Nurse Practitioner Family; Visit Provider Student in an Organized Health Care Education/Training Program
PROC: 0DJD8ZZ Inspection of Lower Intestinal Tract, Via Natural or Artificial Opening Endoscopic (ICD-10-PCS; CPT 45378; principal; 2025-08-24 07:30)
DX: Z12.11 Encounter for screening for malignant neoplasm of colon (principal); K57.30 Diverticulosis of large intestine without perforation or abscess without bleeding; F17.210 Nicotine dependence, cigarettes, uncomplicated
CPT/HCPCS: 45378; J2003; J2704; J7030